=== PATIENT | female | born 1965 | race Caucasian/White ===

== ENCOUNTER 2018-01-15 11:48 | Day surgery (SDC) | payer BC ==
[2018-01-15] MEDS ORDERED: FENTAnyl 50 MCG/ML VIAL ×2 (14:45)
[2018-01-15] MEDS ORDERED: MIDAZOLAM 1 MG/ML 2 ML INJ ×3 (14:45)
== END 2018-01-15 16:18 | disposition home or self-care (01) ==
LOC: GIL 11:48
DX: Z12.11 Encounter for screening for malignant neoplasm of colon (principal); K29.70 Gastritis, unspecified, without bleeding
CPT/HCPCS: 43239; 88305